=== PATIENT | female | born 1960 | race Caucasian/White ===

== ENCOUNTER → 2018-08-17 | Outpatient (CLI) | payer BC ==
--- NOTE | 2018-08-23 13:59 | USB ---
Reason for exam: additional evaluation requested from prior study. History: Patient is postmenopausal. Physical Findings: Nurse did not find any significant physical abnormalities on exam. US Breast LT Left complete breast ultrasound includes all four quadrants, the retroareolar region and axilla. Finding demonstrates a 0.8 x 0.5 x 0.8cm mixed lesion at 1 o'clock. Cyst aspiration with clip placement and compare to mammogram. These results were verbally communicated with the patient and result sheet given to the patient on 08/17/18. ASSESSMENT: Suspicious, BI-RAD 4 RECOMMENDATION: Aspiration of the left breast. (or ultrasound biopsy) Called Dr. Adames with mammographic findings, office to notify patient with results and refer patient to breast surgeon. PRELIMINARY REPORT CALLED AND FAXED TO DR. ADAMES ON 08/23/18.
== END | disposition home or self-care (01) ==
LOC: RADUSWWP 10:06
PROVIDERS: ATTEND Family Medicine
DX: N60.02 Solitary cyst of left breast (principal); Z87.898 Personal history of other specified conditions

== ENCOUNTER → 2020-05-07 | Outpatient (CLI) | payer OTHER ==
--- NOTE | 2020-05-08 14:05 | MM ---
Reason for exam: additional evaluation requested from prior study. Last mammogram was performed 1 year and 10 months ago. History: Patient is postmenopausal. Physical Findings: Nurse did not find any significant physical abnormalities on exam. MG Diagnostic Mammo w CAD RANDY Bilateral CC and MLO view(s) were taken. Prior study comparison: July 22, 2018, mammogram, performed at [facility]. March 06, 2016, bilateral MG diagnostic mammo w CAD RANDY. The breast tissue is heterogeneously dense. This may lower the sensitivity of mammography. There is chronic nodularity in the left breast, decreased in size. There is no new dominant lesion. These results were verbally communicated with the patient and result sheet given to the patient on 05/07/20. ASSESSMENT: Benign, BI-RAD 2 RECOMMENDATION: Routine screening mammogram of both breasts in 1 year.
--- NOTE | 2020-05-08 14:06 | USB ---
Reason for exam: additional evaluation requested from prior study. History: Patient is postmenopausal. US Breast Limited LT Left limited breast ultrasound including focal area of concern, retroareolar and axilla demonstrates a 7 x 5 x 7mm round, hypoechoic lesion at 1 o'clock, decreased in size from 08/17/18. No significant new cystic or solid lesion greater than 0.50cm. These results were verbally communicated with the patient and result sheet given to the patient on 05/07/20. ASSESSMENT: Benign, BI-RAD 2 RECOMMENDATION: Routine screening mammogram of both breasts in 1 year.
== END | disposition home or self-care (01) ==
LOC: RADMAMWWP 14:00
PROVIDERS: ATTEND Family Medicine
DX: R92.8 Other abnormal and inconclusive findings on diagnostic imaging of breast (principal)
CPT/HCPCS: 77066

== ENCOUNTER → 2020-11-08 | Outpatient (CLI) | payer OTHER ==
--- NOTE | 2020-11-08 20:26 | CT ---
EXAMINATION TYPE: CT abdomen pelvis w con DATE OF EXAM: 11/08/2020 COMPARISON: None available. HISTORY: RQ pain, mixed hyperlipidemia. CT DLP: 533.90 mGycm Automated exposure control for dose reduction was used. TECHNIQUE: Helical acquisition of images was performed from the lung bases through the pelvis. CONTRAST: Performed with Oral Contrast and with IV Contrast, patient injected with 100 mL of Isovue 300. FINDINGS: LUNG BASES: No significant abnormality is appreciated. LIVER/GB: No acute abnormality is appreciated. Cholelithiasis without acute cholecystitis. PANCREAS: No significant abnormality is seen. SPLEEN: No significant abnormality is seen. ADRENALS: No significant abnormality is seen. KIDNEYS: No significant abnormality is seen. FREE AIR: No free air is visualized. RETROPERITONEAL ADENOPATHY: None visualized REPRODUCTIVE ORGANS: No significant abnormality is seen URINARY BLADDER: No significant abnormality is seen. PELVIC ADENOPATHY: None visualized. OSSEOUS STRUCTURES: No acute abnormality is seen. Severe L4-S1 spondylosis. BOWEL: No significant abnormality is seen. OTHER: Advanced aortoiliac atherosclerotic disease. IMPRESSION: NO ACUTE ABNORMALITY. CHOLELITHIASIS. ADVANCED ATHEROSCLEROTIC DISEASE.
== END | disposition home or self-care (01) ==
LOC: RADCTMAIN 17:35
PROVIDERS: ATTEND Family Medicine
DX: I10 Essential (primary) hypertension (principal); E78.2 Mixed hyperlipidemia; F41.8 Other specified anxiety disorders; E55.9 Vitamin D deficiency, unspecified; R10.31 Right lower quadrant pain; M54.5 Low back pain; G89.29 Other chronic pain; K80.20 Calculus of gallbladder without cholecystitis without obstruction
CPT/HCPCS: 74177; Q9967

== ENCOUNTER → 2020-11-30 | Outpatient (CLI) | payer OTHER ==
--- NOTE | 2020-11-30 09:49 | CT ---
EXAMINATION TYPE: CT angio abdomen DATE OF EXAM: 11/30/2020 HISTORY: Atherosclerosis of aorta per order. Recent abnormal CT. CT DLP: 1172mGycm Automated Exposure Control for Dose Reduction was Utilized. CONTRAST: CTA scan of the abdomen and pelvis is performed without oral and without and with IV Contrast, patien t injected with 100 ml mL of Isovue 370. Aneurysm protocol with 3-D reconstructed images created an [employer] workstation and reviewed COMPARISON: CT abdomen and pelvis November 08, 2020 . Same day AISHA study. FINDINGS: Vascular: Moderate to severe calcified plaque of the infrarenal abdominal aorta extends into right co mmon iliac artery. More mild calcified plaque superior to this. Focal mixed plaque superior aspect of the celiac artery origin causing stenosis under 50%. Patent SMA with moderate mixed plaque at origin causing stenosis approaching 50%. There is accessory right renal artery. No significant stenosis and bilateral renal arteries. Patent FERN. No definitive greater 50% stenosis in the right iliac or femor al arteries. There is slightly more prominent noncalcified plaque on the left in the proximal to mid common iliac artery causing stenosis just under 50%. LUNG BASES: No significant abnormality is appreciated. LIVER/GB: Small dependent calcified gallstones in gallbladder redemonstrated. PANCREAS: No significant abnormality is seen. SPLEEN: No significant abnormality is seen. ADRENALS: No significant abnormality is seen. KIDNEYS: No significant abnormality is seen. BOWEL: No significant abnormality is seen. UTERUS/ADNEXA: A few Left-sided pelvic phleboliths redemonstrated. LYMPH NODES: No greater than 1cm abdominal or pelvic lymph nodes are appreciated. OSSEOUS STRUCTURES: Slight underlying levoconvex scoliotic curvature near the lumbosacral junction re demonstrated. There is moderate right-sided disc space narrowing along with endplate sclerosis and an terior right-sided spurring L5-S1 level and anterior right L4-L5 level redemonstrated. Slight grade 1 retrolisthesis L4 on L5 redemonstrated. Facet arthropathy lower lumbar levels. Most prominent spinal canal stenosis L4-L5 level axial image 44 redemonstrated OTHER: No significant additional abnormality is seen. IMPRESSION: Moderate to severe aortoiliac atherosclerotic change. No hemodynamically significant sten osis clearly seen.
--- NOTE | 2020-12-05 09:44 | P.ARTDOP ---
Arterial Doppler LOWER EXTREMITY ARTERIAL DOPPLER: DATE OF SERVICE: 11/30/2020 Reason for study: Suspected lower extremity occlusive disease. Doppler waveforms: Multiphasic bilaterally through the foot and ankle.. Pulse volume recording: []. Pressure gradients: Only at the foot level. Ankle-brachial indices: 0.94 on the right and 0.98 on the left. Toe brachial indices: 0.37 on the right, 0.29 on the left Impression: Normal study proximally. Blunted distal waveforms and lower pressures highly suspicious for vasospastic phenomenon. Clinical correlation recommended..
== END ==
LOC: RADCTMAIN 07:47
PROVIDERS: ATTEND Family Medicine
DX: I70.0 Atherosclerosis of aorta (principal)
CPT/HCPCS: 93923; 74175; Q9967

== ENCOUNTER → 2021-01-21 | Outpatient (CLI) | payer OTHER ==
[2021-01-21 14:58] LABS: Chol/HDL Ratio 2.65; LDL Cholesterol,Calculated 98.6 mg/dL (0.0-131.0); VLDL Calculation 18.4 mg/dL (5.00-40.00)
== END | disposition home or self-care (01) ==
LOC: LABWHC1 10:49
PROVIDERS: ATTEND Internal Medicine
DX: I73.9 Peripheral vascular disease, unspecified (principal); E78.5 Hyperlipidemia, unspecified
CPT/HCPCS: 36415; 80061

== ENCOUNTER → 2022-07-08 | Outpatient (CLI) | payer OTHER ==
--- NOTE | 2022-07-09 09:24 | MM ---
Reason for Exam: Screening (asymptomatic). Last mammogram was performed 2 year(s) and 2 month(s) ago. Patient History: Menarche at age 11. First Full-Term at age 26. Postmenopausal. Risk Values: Shelley 5 year model risk: 1.7%. NCI Lifetime model risk: 7.4%. Prior Study Comparison: 03/06/2016 Bilateral Diagnostic Mammogram, [facility]. 07/22/2018 Screening Mammogram, [facility]. 05/07/2020 Bilateral Diagnostic Mammogram, [facility]. Tissue Density: The breast tissue is heterogeneously dense. This may lower the sensitivity of mammography. Findings: Analyzed By CAD. No architectural distortion or dominant mass.. Benign calcifications are noted. There is a grouped area calcifications in the upper outer quadrant of the left breast. Overall Assessment: Incomplete: need additional imaging evaluation, BI-RAD 0 Management: Special View Mammogram of the left breast. A clinical breast exam by your physician is recommended on an annual basis and results should be correlated with mammographic findings. Electronically signed and approved by: Wally Casillas M.D. Radiologis
== END | disposition home or self-care (01) ==
LOC: RADMAMWWP 09:14
PROVIDERS: ATTEND Family Medicine
DX: Z12.31 Encounter for screening mammogram for malignant neoplasm of breast (principal); Z78.0 Asymptomatic menopausal state
CPT/HCPCS: 77063; 77067

== ENCOUNTER → 2022-07-15 | Outpatient (CLI) | payer OTHER ==
--- NOTE | 2022-07-15 14:23 | MM ---
Reason for Exam: Additional evaluation requested from abnormal screening. Last screening mammogram was performed less than 1 month ago. Patient History: Menarche at age 11. First Full-Term at age 26. Postmenopausal. Risk Values: Shelley 5 year model risk: 1.7%. NCI Lifetime model risk: 7.4%. Prior Study Comparison: 07/22/2018 Screening Mammogram, [facility]. 05/07/2020 Bilateral Diagnostic Mammogram, [facility]. 07/08/2022 Bilateral MG 3D screening mammo w/cad, [facility]. Tissue Density: Left: The breast tissue is heterogeneously dense. This may lower the sensitivity of mammography. Findings: Analyzed By CAD. 6 mm circumscribed low density to isodense nodule 2:00 left breast anterior to middle depth in the same location as a previously seen much larger round lesion that measured 2.2 cm back in 2016. Some vague amorphous calcifications are present along the periphery of this nodule. Suspect a cyst that has accumulated calcific debris. Six-month follow-up recommended to reassess. Overall Assessment: Probably benign, BI-RAD 3 Management: Diagnostic Mammogram of the left breast in 6 months. 1. Patient should continue monthly self breast exams. 2. A clinical breast exam by your physician is recommended on an annual basis. 3. This exam should not preclude additional follow-up of suspicious palpable abnormalities. Results were given to the patient verbally at the time of exam. Electronically signed and approved by: Justice Galeas M.D. Radiologist
== END | disposition home or self-care (01) ==
LOC: RADMAMWWP 13:34
PROVIDERS: ATTEND Family Medicine
DX: R92.8 Other abnormal and inconclusive findings on diagnostic imaging of breast (principal); Z78.0 Asymptomatic menopausal state
CPT/HCPCS: 77065; G0279; 77061

== ENCOUNTER → 2023-03-02 | Outpatient (CLI) | payer OTHER ==
--- NOTE | 2023-03-02 12:34 | CTL ---
EXAMINATION TYPE: CT Low Dose Lung DATE OF EXAM ORDERED: 03/02/2023 HISTORY: Long-term tobacco use. Lung cancer screening CT DLP: 59.[address] CTDI: 1.7 mGy Automated exposure control for dose reduction was used. SCREENING VISIT: Baseline COMPARISON: None TECHNIQUE: Low dose computed tomography scan was performed through the chest at 1 mm thick sections a nd reconstructed images in multiple planes at 1 mm and [address] DIAGNOSTIC QUALITY: Satisfactory FINDINGS: LUNG NODULES: None. LUNGS: COPD: Severity: Moderate Fibrosis: Severity: Mild medial basilar scarring. Lymph nodes: None. Other findings: None. RIGHT PLEURAL SPACE: Effusion: None Calcification: None Thickening: None Pneumothorax: None LEFT PLEURAL SPACE: Effusion: None Calcification: None Thickening: None Pneumothorax: None HEART: Heart Size: Normal Coronary Calcification: Moderate Pericardial Effusion: None OTHER FINDINGS: Upper abdomen: None Bony thorax: Mild to moderate spurring. Supraclavicular region: None Other: None IMPRESSION: Moderate emphysematous change without suspicious nodules. CT LUNG RAD AND CT CHEST RECOMMENDATION: 1-Negative. S Modifier (other clinically significant findings): None
--- NOTE | 2023-03-02 13:09 | MM ---
Reason for Exam: Follow-up at short interval from prior study. Last screening mammogram was performed 8 month(s) ago. Patient History: Menarche at age 11. First Full-Term at age 26. Postmenopausal. Risk Values: Shelley 5 year model risk: 1.7%. NCI Lifetime model risk: 7.4%. Prior Study Comparison: 05/07/2020 Bilateral Diagnostic Mammogram, [facility]. 07/08/2022 Bilateral MG 3D screening mammo w/cad, [facility]. 07/15/2022 Left MG 3D work up w/cad LT, [facility]. Tissue Density: Left: The breast tissue is heterogeneously dense. This may lower the sensitivity of mammography. Findings: Analyzed By CAD. Stable round mass within the upper outer left breast at anterior depth measuring up to 5 mm with some coarse calcification identified. No new suspicious masses within the left breast. No architectural distortion or worrisome cluster of calcifications within the left breast. Overall Assessment: Benign, BI-RAD 2 Management: Screening Mammogram of both breasts in 4 months. A clinical breast exam by your physician is recommended on an annual basis and results should be correlated with mammographic findings. This exam should not preclude additional follow-up of suspicious palpable abnormalities. Results were given to the patient verbally at the time of exam. Electronically signed and approved by: Lloyd Robb D.O.
== END | disposition home or self-care (01) ==
LOC: RADCTMAIN 12:01
PROVIDERS: ATTEND Family Medicine
DX: Z12.2 Encounter for screening for malignant neoplasm of respiratory organs (principal); R92.8 Other abnormal and inconclusive findings on diagnostic imaging of breast; J43.9 Emphysema, unspecified; Z78.0 Asymptomatic menopausal state; Z87.891 Personal history of nicotine dependence
CPT/HCPCS: 71271; 77061; 77065

== ENCOUNTER → 2023-11-19 | Outpatient (CLI) | payer OTHER ==
[2023-11-19 16:12] LABS: ALT 24 U/L (8-44); AST 26 U/L (13-35); Chol/HDL Ratio 2.52 Ratio; LDL Cholesterol,Calculated 107.4 mg/dL (0.0-131.0); VLDL Calculation 16.72 mg/dL (5.00-40.00)
== END | disposition home or self-care (01) ==
LOC: LABWHC1 08:37
PROVIDERS: ATTEND Internal Medicine
DX: E78.2 Mixed hyperlipidemia (principal)
CPT/HCPCS: 36415; 80061; 84450; 84460

== ENCOUNTER → 2024-06-14 | Outpatient (CLI) | payer MEDICARE, OTHER ==
--- NOTE | 2024-06-16 10:44 | MM ---
Reason for Exam: Screening (asymptomatic). Last mammogram was performed 1 year(s) and 11 month(s) ago. Patient History: Menarche at age 11. First Full-Term at age 26. Postmenopausal. Risk Values: Shelley 5 year model risk: 1.8%. NCI Lifetime model risk: 6.9%. Prior Study Comparison: 07/08/2022 Bilateral MG 3D screening mammo w/cad, [facility]. 07/15/2022 Left MG 3D work up w/cad LT, [facility]. 03/02/2023 Left MG 3D diag mammo w/cad LT, [facility]. Tissue Density: There are scattered areas of fibroglandular density. Findings: Analyzed By CAD. Right breast: There is no suspicious group of microcalcifications or new suspicious mass. Left breast: There is no suspicious group of microcalcifications or new suspicious mass. Overall Assessment: Negative, BI-RAD 1 Management: Screening Mammogram of both breasts in [address] [facility] will attempt to contact patient to return for supplemental views and ultrasound if indicated. Patient should continue monthly self-breast exams. A clinical breast exam by your physician is recommended on an annual basis. This exam should not preclude additional follow-up of suspicious palpable abnormalities. Note on Shelley scores and lifetime risk: 1. A Shelley score greater than 3% is considered moderate risk. If this is the case, consider specialist referral to assess eligibility for a risk reducing agent. 2. If overall lifetime risk for the development of breast cancer is 20% or higher, the patient may qualify for future screening with alternating mammogram and breast MRI. [facility], , 06/16/2024 10:38 AM. Electronically signed and approved by: Ananda Leong DO
== END | disposition home or self-care (01) ==
LOC: RADMAMWWP 11:36
PROVIDERS: ATTEND Family Medicine
DX: Z12.31 Encounter for screening mammogram for malignant neoplasm of breast
CPT/HCPCS: 77063; 77067

== ENCOUNTER → 2024-06-14 | Outpatient (CLI) | payer MEDICARE, OTHER ==
--- NOTE | 2024-06-14 12:02 | CTL ---
EXAMINATION TYPE: CT Low Dose Lung DATE OF EXAM ORDERED: 06/14/2024 HISTORY: Current smoker, nicotine dependence, 40 pack-year history. Lung cancer screening CT DLP: 74.[address] CTDI: 2.0 mGy Automated exposure control for dose reduction was used. SCREENING VISIT: Second screening visit COMPARISON: 03/02/2023 TECHNIQUE: Low dose computed tomography scan was performed through the chest at 1 mm thick sections a nd reconstructed images in multiple planes at 1 mm and [address] DIAGNOSTIC QUALITY: Satisfactory FINDINGS: Nodules: No clinically significant pulmonary nodules. LUNGS: COPD: Severity: Moderate Fibrosis: Severity: Mild medial basilar scarring Lymph nodes: None Other findings: None RIGHT PLEURAL SPACE: Effusion: None Calcification: None Thickening: None Pneumothorax: None LEFT PLEURAL SPACE: Effusion: None Calcification: None Thickening: None Pneumothorax: None HEART: Heart Size: Normal Coronary Calcification: Moderate Pericardial Effusion: None OTHER FINDINGS: Upper abdomen: None Bony thorax: Mild to moderate spurring. Mild retrolisthesis of T11 on T12. Supraclavicular region: None Other: Mild to moderate atherosclerotic calcification of the aorta. IMPRESSION: 1. No clinically significant pulmonary nodules. 2. Moderate COPD changes. CT LUNG RAD AND CT CHEST RECOMMENDATION: Lung-Rad 1 Negative: Continue annual screening with LDCT in 12 months. S Modifier (other clinically significant findings): None [facility], , 06/14/2024 12:00 PM
== END | disposition home or self-care (01) ==
LOC: RADCTMAIN 11:02
PROVIDERS: ATTEND Family Medicine
DX: Z12.2 Encounter for screening for malignant neoplasm of respiratory organs (principal); J44.9 Chronic obstructive pulmonary disease, unspecified; F17.210 Nicotine dependence, cigarettes, uncomplicated
CPT/HCPCS: 71271